=== PATIENT | female | born 1940 | race Caucasian/White ===

== ENCOUNTER 2020-06-18 11:25 | Observation (INO) | payer MEDICARE ==
[~2020-06-18] VITALS: Ht 170.2 cm; Wt 126.1 kg
[~2020-06-18 11:25] MED LIST: ASPIRIN EC81 MG PO; BUDESONIDE0.5 MG/2 M NEB; CARDIZEM CD300 MG PO; DITROPAN 5 MG TA5 MG PO; ELIQUIS5 MG PO; FERROUS SULFAT325 M2 PO; IPRAT-ALBUT 0.5-3 ML INH; KLONOPIN TAB 00.5 MG PO; LANOXIN TAB0.125 MG PO; LEVOFLOXACIN500 MG PO; LISINOPRIL2.5 MG PO; LOPRESSOR 50 MG50 MG PO; PREDNISONE 20 M20 MG PO; PRILOSEC OTC20 MG PO; SYNTHROID150 MCG PO; VENLAFAXINE HC150 M1 PO; VITAMIN B-121000 MCG PO; VITAMIN C1000 MG PO; VITAMIN D31000 UNIT PO
[2020-06-18 13:02] LABS: HEMOGLOBIN 11.7 gm/dl (12.3-15.3); RED BLOOD COUNT 3.49 M/UL (4.00-5.10); WHITE BLOOD COUNT 15.7 K/UL (4.5-11.0)
[2020-06-18 13:32] LABS: BUN/CREATININE RATIO 25 (0-10)
[2020-06-18] MEDS ORDERED: POTASSIUM CHLO10 ME1 PO (14:53)
[2020-06-18] MEDS ORDERED: MELATONIN10 M2 PO (15:18)
[2020-06-18] MEDS ORDERED: ORAZINC220 MG PO (15:19)
[2020-06-18] MEDS ORDERED: VITAMIN E200 UNI2 PO (15:19)
[2020-06-18] MEDS ORDERED: TYLENOL325 MG PO (15:20)
[2020-06-18] MEDS ORDERED: LASIX40 MG PO (15:26)
[2020-06-19 04:35] LABS: HEMOGLOBIN 10.6 gm/dl (12.3-15.3); RED BLOOD COUNT 3.19 M/UL (4.00-5.10)
[2020-06-19 04:38] LABS: WHITE BLOOD COUNT 10.1 K/UL (4.5-11.0)
[2020-06-20 04:09] LABS: RED BLOOD COUNT 3.34 M/UL (4.00-5.10); WHITE BLOOD COUNT 10.5 K/UL (4.5-11.0)
[2020-06-20] MEDS ORDERED: LEVOFLOXACIN500 MG PO (10:36)
[2020-06-20] MEDS ORDERED: OMNICEF 300 MG300 MG PO (11:46)
[2020-09-17] MEDS ORDERED: PLAVIX75 MG PO (13:28)
[2020-09-17] MEDS ORDERED: ASPIRIN EC81 MG PO (13:28)
== END 2020-06-20 14:44 | disposition home or self-care (01) ==
LOC: ER1 11:25 → CDU 15:00 → MED SURG 4 20:36
PROVIDERS: Physician Assistant; Physician Assistant Medical; ADMIT Internal Medicine
DX: N30.00 Acute cystitis without hematuria (principal); B96.4 Proteus (mirabilis) (morganii) as the cause of diseases classified elsewhere; I48.20 Chronic atrial fibrillation, unspecified; K21.9 Gastro-esophageal reflux disease without esophagitis; D50.9 Iron deficiency anemia, unspecified; E03.9 Hypothyroidism, unspecified; K44.9 Diaphragmatic hernia without obstruction or gangrene; I10 Essential (primary) hypertension; K92.2 Gastrointestinal hemorrhage, unspecified; Z90.49 Acquired absence of other specified parts of digestive tract; Z88.6 Allergy status to analgesic agent; Z79.899 Other long term (current) drug therapy; Z82.49 Family history of ischemic heart disease and other diseases of the circulatory system; Z20.822 Contact with and (suspected) exposure to COVID-19
CPT/HCPCS: 70450; 71045; 80048; 80053; 80307; 81001; 82550; 82553; 83735; 83874; 84439; 84443; 84484; 85025; 85027; 87077; 87086; 87186; 90471; 93005; 96374; 96376; 97162; 97166; 99285; G0378; G0480; J1335; U0002

== ENCOUNTER → 2020-09-17 | Day surgery (SDC) | payer MEDICARE ==
[~2020-09-17] MED LIST changes: +LASIX40 MG PO; +MELATONIN10 M2 PO; +OMNICEF 300 MG300 MG PO; +ORAZINC220 MG PO; +PLAVIX75 MG PO; +POTASSIUM CHLO10 ME1 PO; +TYLENOL325 MG PO; +VITAMIN E200 UNI2 PO
== END | disposition home or self-care (01) ==
LOC: OR 11:05
DX: R39.198 Other difficulties with micturition (principal); J44.9 Chronic obstructive pulmonary disease, unspecified; F41.9 Anxiety disorder, unspecified; E11.42 Type 2 diabetes mellitus with diabetic polyneuropathy; F32.9 Major depressive disorder, single episode, unspecified; G47.33 Obstructive sleep apnea (adult) (pediatric); I10 Essential (primary) hypertension; E03.9 Hypothyroidism, unspecified; K58.9 Irritable bowel syndrome, unspecified; Z87.440 Personal history of urinary (tract) infections; Z87.442 Personal history of urinary calculi; Z88.5 Allergy status to narcotic agent; Z79.82 Long term (current) use of aspirin; Z79.02 Long term (current) use of antithrombotics/antiplatelets; Z79.899 Other long term (current) drug therapy; Z20.822 Contact with and (suspected) exposure to COVID-19
CPT/HCPCS: 81001; J7040; U0002

== ENCOUNTER → 2021-01-11 | Outpatient (CLI) | payer MEDICARE | LOC: KOH-I 10:30 | DX: K76.0 Fatty (change of) liver, not elsewhere classified (principal) | CPT/HCPCS: 76700 ==